=== PATIENT | male | born 1965 | race Caucasian/White ===

== ENCOUNTER 2016-07-03 16:22 | Emergency (ER) | payer MEDICAID, OTHER ==
[2016-07-03] MEDS ORDERED: IBUPROFEN 600 MG TAB PO ONE (16:52)
[2016-07-03 17:24] VITALS: BP 134/54; PULSE 66; RESP 16; TEMP 98.2; O2SAT 94
[2016-07-03] MEDS ORDERED: TDAP ADULT 0.5 ML INJ (BOOSTRIX) IM ONE (18:40)
--- NOTE | 2016-07-03 18:46 | UCPHY ---
H & P Time Seen by Provider: 07/03/16 17:06 Patient Type: Established HPI/ROS: HPI Laceration to left index finger tip. 50-year-old male, by private vehicle, right-hand dominant, was using a table saw all with his son when it slipped from the piece of wood he was cutting catching his left index finger tip. He sustained a nail injury and finger tip laceration. No other complaints. He cannot remember the last time he had a tetanus shot. ROS: Constitutional: No fever, no chills. No weakness. Musculoskeletal: As above Skin: As above Neurological: No focal weakness or altered sensation. Past medical history: Orthopedic surgeries, heart failure, diverticulitis. Social history: Here by himself. and with children. Physical Exam: General Appearance: Alert, no distress. This patient is responding to questions appropriately and in full sentences. This patient appears well- hydrated and well-nourished. Eyes: Pupils equal and round no pallor or injection. No lid edema, erythema or injection. Left index finger examination: He has a macerated ulnar aspect nail bed wound with tissue loss which is not suturable as well as a jagged 1.5 cm laceration midline tip of the finger from the nail bed edge to the distal finger pad. There is no evidence of foreign body on gross inspection and exploration of this wound. The finger is neurovascularly intact. Please see wound care note for further details. Neurological: Motor sensory function is grossly intact. Cranial nerves are normal. Gait is normal. Skin: Warm and dry, no rashes. As above. Extremities are symmetrical. All joints range without pain or impingement. Psychiatric: No agitation. No depression. Database: EKG: Imaging: Procedures: Procedure: Laceration repair. Verbal consent was obtained from the patient. The 1.5 cm laceration on the left index finger tip was anesthetized in the usual fashion. The wound was irrigated, draped and explored to its base with a gloved finger. There were no deep structures involved. No tendon injury was identified. No foreign body identified. The wound was repaired with 8, 5.0 Ethilon sutures placed in interrupted fashion. The wound repair was tolerated well and there were no complications. The procedure was performed by myself. Emergency department course: Patient given a tetanus booster. After suture repair as above, wound care was discussed with him. I explained that the macerated nail bed which did not have a suturable laceration would heal by granulation. I discussed scarring and probable deformity of the fingernail. I explained that I felt functionality of the finger would be close to normal. I will put him on Keflex for a few days as infection prophylaxis. He feels comfortable going home. Follow-up and return to Urgent Care precautions were discussed with him. All of his questions were answered. He was discharged in good condition. Differential Diagnosis: The differential diagnosis on this patient includes but is not limited to left finger tip laceration. Significant neurovascular injury, retained foreign body , fracture unlikely. This represents a partial list of diagnoses considered. These considerations are based on history, physical exam, past history, reassessment and diagnostic testing. Smoking Status: Current every day smoker Constitutional: Initial Vital Signs Temperature (C) 36.8 C 07/03/16 17:21 Heart Rate 66 07/03/16 17:21 Respiratory Rate 16 07/03/16 17:21 Blood Pressure 134/54 H 07/03/16 17:21 O2 Sat (%) 94 07/03/16 17:21 O2 Delivery Mode Room Air Allergies/Adverse Reactions: No Known Allergies Allergy (Verified 07/03/16 17:14) Home Medications: Medication Instructions Recorded [place]-[facility] Fatty Acids [Fish Oil 1000 1,000 mg PO DAILY 03/02/15 mg (*)] Aspirin [Aspirin 81mg (*)] 81 mg PO DAILY #0 tab 03/06/15 Calcium Carbonate [Tums 500MG (*)] 1,000 mg PO Q6 PRN #0 tabchew 03/06/15 Carvedilol [Coreg (*)] 6.25 mg PO BIDMEAL #60 tab 03/06/15 Furosemide [Lasix 40 MG (*)] 40 mg PO DAILY #30 tab 03/06/15 Lisinopril [Zestril 5 mg (*)] 5 mg PO DAILY #30 tab 03/06/15 Cephalexin [Keflex (*)] 500 mg PO Q6 4 Days 07/03/16 Lisinopril 07/03/16 Spironolactone 07/03/16 Departure - Departure Disposition: Home, Routine, Self-Care Clinical Impression: Finger tip laceration Condition: Good Instructions: Laceration (ED), Care For Your Stitches (ED) Additional Instructions: Read and follow provided instructions. Sutures are to be removed in 10-12 days. Follow-up with your primary care physician in 2 to days for re-evaluation. Take antibiotics as prescribed. Return to the emergency department for worsening pain, swelling, discoloration or other serious concerns. Referrals: Jay Mccallum DO [Primary Care Provider] - As per Instructions Prescriptions: Cephalexin [Keflex (*)] 500 mg PO Q6 4 Days - PQRS PQRS Measurement: 134: Depression screening and followup, PRIME MD-PHQ2 (12 years and older) Over the last 2 weeks, how often have you been bothered by any of the following problems? 1. Feeling down, depressed, or hopeless? 2. Little interest or pleasure in doing things? Answered no to both questions. 130: Documentation of medications. Reviewed all patient medications, doses, route and frequency. 226: Do you smoke? No. 47: 65 and older: Advanced care planning. Patient designates surrogate decision maker as spouse. 51: 18 years old and older with diagnosis of COPD, spirometry performance. NA 52: 18 years old and older with COPD and symptoms of COPD or FEV1<60% predicted prescribed a B Agonist. NA
[2016-07-03] MEDS ORDERED: CEPHALEXIN 500MG PREPACK#4 BTL TAKEHOME ONE (18:48)
== END 2016-07-03 19:01 | disposition home or self-care (01) ==
LOC: CED 16:22
PROC: 0HQGXZZ Repair Left Hand Skin, External Approach (ICD-10-PCS; principal; 2016-07-03)
DX: S61.311A Laceration without foreign body of left index finger with damage to nail, initial encounter (principal); W31.2XXA Contact with powered woodworking and forming machines, initial encounter; Y92.019 Unspecified place in single-family (private) house as the place of occurrence of the external cause; W45.8XXA Other foreign body or object entering through skin, initial encounter; Y99.8 Other external cause status; F17.200 Nicotine dependence, unspecified, uncomplicated; Z23 Encounter for immunization
CPT/HCPCS: G0463-PO

== ENCOUNTER → 2016-10-26 | Outpatient (CLI) | payer OTHER ==
[~2016-10-26] MED LIST: IOPAMIDOL (ISOVUE-300) 100 ML BTL ONE
== END ==
LOC: CIMAGING 14:22
PROVIDERS: ATTEND Family Medicine
DX: C43.4 Malignant melanoma of scalp and neck (principal)
CPT/HCPCS: 70491-PO; 71260-PO; Q9967

== ENCOUNTER → 2017-06-21 | Outpatient (CLI) | payer OTHER ==
[~2017-06-21] MED LIST changes: +GADOBUTROL 10 ML VIAL IVP ONE; -IOPAMIDOL (ISOVUE-300) 100 ML BTL ONE
== END ==
LOC: FIMAGING 19:24
PROVIDERS: ATTEND Internal Medicine Hematology & Oncology
DX: Z12.89 Encounter for screening for malignant neoplasm of other sites (principal); C43.9 Malignant melanoma of skin, unspecified; K11.8 Other diseases of salivary glands
CPT/HCPCS: A9585

== ENCOUNTER → 2017-10-06 | Outpatient (CLI) | payer OTHER | LOC: FIMAGING 10:33 | PROVIDERS: ATTEND Nurse Practitioner | DX: R05 Cough (principal); Z92.21 Personal history of antineoplastic chemotherapy ==